=== PATIENT | male | born 1955 | race Caucasian/White ===

== ENCOUNTER 2017-08-12 13:24 | Inpatient (IN) | payer MEDICAID ==
[~2017-08-12] VITALS: Ht 170.2 cm; Wt 100.0 kg
[2017-08-12] MEDS ORDERED: SODIUM CHLORIDE 0.9% 1,000 ML IV ONE ×2 (14:35→19:30)
[2017-08-12] MEDS ORDERED: ONDANSETRON HCL 4MG/2ML INJ IV STA (14:35)
[2017-08-12] MEDS ORDERED: KETOROLAC 30MG/ML VIAL IV STA (14:35)
[2017-08-12 15:32] LABS: BASOPHILS % 0.1 % (0.0-2.0); HEMATOCRIT. 44.9 % (42.0-52.0); HEMOGLOBIN. 15.6 g/dL (14.0-18.0); LYMPHOCYTES % 2.5 % (20.0-50.0); MEAN CORPUSCULAR VOLUME 95.1 fL (80.0-94.0); MEAN PLATELET VOLUME 8.1 fl (7.4-10.4); NEUTROPHILS % 86.4 % (40.0-76.0); PLATELET 179 x1000/uL (130-400); RED BLOOD CELL COUNT 4.72 mill/uL (4.7-6.1); RED CELL DISTRIBUTION WIDTH 15.1 % (11.6-14.6)
[2017-08-12 15:37] LABS: INR 1.1; PROTHROMBIN TIME 11.6 sec (9.4-11.6)
[2017-08-12] MEDS ORDERED: LORAZEPAM 2MG/ML CPJ IV ONE (15:45)
[2017-08-12 15:47] LABS: CHLORIDE 95 mEq/L (98-107); ETHANOL BLOOD < 10 mg/dL
[2017-08-12 16:17] LABS: CLARITY URINE CLOUDY (CLEAR); COLOR URINE DARK YELLOW (YELLOW); KETONES URINE 2+ (NEGATIVE); LEUKOCYTE ESTERASE URINE NEGATIVE (NEGATIVE); NITRITE URINE NEGATIVE (NEGATIVE); OCCULT BLOOD URINE 3+ (NEGATIVE); PROTEIN URINE 1+ (NEGATIVE); SPECIFIC GRAVITY URINE 1.026 (1.005-1.030)
[2017-08-12 16:29] LABS: *AMPHETAMINES SCREEN URINE NEGATIVE (NEGATIVE); *BARBITURATES SCREEN URINE NEGATIVE (NEGATIVE); *BENZODIAZEPINES SCREEN URINE NEGATIVE (NEGATIVE); *COCAINE SCREEN URINE NEGATIVE (NEGATIVE); CANNABINOID URINE SCREEN PRESUMTIVE POSITIVE (NEGATIVE); METHADONE URINE SCREEN NEGATIVE (NEGATIVE); OPIATES URINE SCREEN NEGATIVE (NEGATIVE); PHENCYCLIDINE URINE SCREEN NEGATIVE (NEGATIVE)
[2017-08-12] MEDS ORDERED: ASPIRIN 325MG TABLET PO ONE (19:15)
[2017-08-12] MEDS ORDERED: CHLORDIAZEPOXIDE 25MG CAPSULE PO ONE ×2 (19:30)
[2017-08-12] MEDS ORDERED: IOHEXOL-350 100 ML BOTTLE ONE (20:27)
[2017-08-12] MEDS ORDERED: ONDANSETRON HCL 4MG/2ML INJ IV PRN (23:00)
[2017-08-12] MEDS ORDERED: HYDROCODONE/ACETAMINOPHEN 5/325MG TABLET PO PRN (23:00)
[2017-08-12] MEDS ORDERED: ENOXAPARIN 40MG/0.4ML SYR SUBCUT SCH (23:00)
[2017-08-12] MEDS ORDERED: ACETAMINOPHEN 325MG TABLET PO PRN (23:00)
[2017-08-12] MEDS ORDERED: GUAIFENESIN 200MG/10ML SUGAR FREE UDC PO PRN (23:00)
[2017-08-12] MEDS ORDERED: IPRATROPIUM/ALBUTEROL 0.5-3(2.5)MG/3ML NEB INH PRN (23:00)
[2017-08-12] MEDS ORDERED: DOCUSATE SODIUM 100MG CAPSULE PO PRN (23:00)
[2017-08-12 23:35] VITALS: BP 168/101
[2017-08-13] VITALS: BP 146/88
[2017-08-13] MEDS: MORPHINE SULFATE 4 MG/ML CPJ (NOT FOR IM USE) IV PRN ×2 (01:26→09:06)
[2017-08-13 04:00] VITALS: BP 116/71
[2017-08-13 07:45] LABS: BASOPHILS % 0.3 % (0.0-2.0); EOSINOPHILS % 0.2 % (0.0-5.0); HEMATOCRIT. 43.3 % (42.0-52.0); HEMOGLOBIN. 14.6 g/dL (14.0-18.0); LYMPHOCYTES % 7.7 % (20.0-50.0); MEAN CORPUSCULAR HEMOGLOBIN 32.2 pg (28.0-32.0); MEAN CORPUSCULAR VOLUME 95.2 fL (80.0-94.0); MEAN PLATELET VOLUME 8.5 fl (7.4-10.4); MONOCYTES % 11.3 % (2.0-8.0); NEUTROPHILS % 80.5 % (40.0-76.0); PLATELET 159 x1000/uL (130-400); RED BLOOD CELL COUNT 4.55 mill/uL (4.7-6.1); RED CELL DISTRIBUTION WIDTH 14.9 % (11.6-14.6)
[2017-08-13 07:53] VITALS: BP 156/97
[2017-08-13 08:23] LABS: CHLORIDE 97 mEq/L (98-107)
[2017-08-13 08:57] LABS: CREATINE KINASE MB FRACTION 40.7 ng/mL (0.5-3.6); HDL CHOLESTEROL 73 mg/dL (40-59); LDL CHOLESTEROL 76 mg/dL (5-100)
[2017-08-13 09:00] LABS: CREATINE KINASE 7809 IU/L (39-308)
[2017-08-13] MEDS: ASPIRIN 81MG EC TABLET PO SCH (09:03)
[2017-08-13] MEDS: AMLODIPINE 10MG TABLET PO SCH (09:03)
[2017-08-13] MEDS: ENOXAPARIN 30MG/0.3ML SYR SUBCUT SCH ×2 (09:03→20:36)
[2017-08-13] MEDS: SODIUM CHLORIDE 0.9% 1,000 ML IV SCH ×2 (11:00→23:47)
[2017-08-13 12:00] VITALS: BP 164/98
[2017-08-13 13:00] LABS: HEPATITIS B SURFACE ANTIGEN NEGATIVE
[2017-08-13 13:29] LABS: HEPATITIS A AB IGM NEGATIVE (NEGATIVE)
[2017-08-13 16:00] VITALS: BP 140/88
[2017-08-13 17:05] LABS: CREATINE KINASE MB FRACTION 21.4 ng/mL (0.5-3.6)
[2017-08-13 20:00] VITALS: BP 126/80
[2017-08-14] VITALS: BP 124/79
[2017-08-14 04:00] VITALS: BP 121/77
[2017-08-14 07:54] LABS: CREATINE KINASE 2351 IU/L (39-308)
[2017-08-14 08:00] VITALS: BP 154/85
[2017-08-14] MEDS: ASPIRIN 81MG EC TABLET PO SCH (08:14)
[2017-08-14] MEDS: AMLODIPINE 10MG TABLET PO SCH (08:14)
[2017-08-14] MEDS: SODIUM CHLORIDE 0.9% 1,000 ML IV SCH (08:15)
[2017-08-14] MEDS: ENOXAPARIN 30MG/0.3ML SYR SUBCUT SCH (08:15)
[2017-08-14] MEDS ORDERED: SODIUM CHLORIDE 0.9% 1,000 ML IV SCH (08:15)
[2017-08-14] MEDS ORDERED: ASPIRIN 81MG TABLET PO SCH (09:00)
[2017-08-14 09:14] LABS: T4 FREE 0.96 ng/dL (0.76-1.46)
[2017-08-14 11:37] VITALS: BP_SYST 110; BP_SYST 154; BP_DIAS 85; BP_DIAS 86
[2017-08-14 12:00] VITALS: BP 110/86
== END 2017-08-14 14:45 | disposition home or self-care (01) | DRG 280 ==
LOC: ER 15:19 → 8WST 19:34 → ENRESERV 22:36 → SUPCPDRO 22:55
PROVIDERS: ADMIT Hospitalist; ATTEND Hospitalist
DX: K70.10 Alcoholic hepatitis without ascites (principal); M62.82 Rhabdomyolysis; I10 Essential (primary) hypertension; F10.10 Alcohol abuse, uncomplicated; E11.9 Type 2 diabetes mellitus without complications; E78.5 Hyperlipidemia, unspecified; F41.9 Anxiety disorder, unspecified; W18.39XA Other fall on same level, initial encounter; Y93.89 Activity, other specified; Y92.89 Other specified places as the place of occurrence of the external cause; Y99.8 Other external cause status; M94.0 Chondrocostal junction syndrome [Tietze]
CPT/HCPCS: 36415; 71045; 71275; 74176; 80061; 80305; 82550; 82553; 82962; 83036; 83880; 84439; 84443; 84484; 85379; 86705; 86709; 86803; 87340; 93005; 93306; 93970; 96361; 96374; 96375; 99291; G0482; J1650; J1885; J2060; J2270; J2405; J7030; Q9967

== ENCOUNTER 2020-01-21 13:54 | Emergency (ER) | payer OTHER, MEDICAID ==
[~2020-01-21] VITALS: Ht 170.2 cm; Wt 98.0 kg
[2020-01-21 17:39] VITALS: BP 163/87
== END 2020-01-21 17:40 | disposition home or self-care (01) ==
LOC: ER 13:54
DX: J22 Unspecified acute lower respiratory infection (principal); R73.03 Prediabetes; F41.9 Anxiety disorder, unspecified; I10 Essential (primary) hypertension; Z11.59 Encounter for screening for other viral diseases
CPT/HCPCS: 71045; 87635; 93005; 99285